=== PATIENT | female | born 1965 | race Caucasian/White ===

== ENCOUNTER 2017-09-30 07:15 | Emergency (ER) | payer OTHER ==
[~2017-09-30] VITALS: Ht 170.2 cm; Wt 70.1 kg
[2017-09-30 07:25] VITALS: TEMP 36.8; Ht 170.2 cm; Wt 70.1 kg
[2017-09-30] MEDS ORDERED: ONDANSETRON INJ 2 MG/ML 2 ML VIAL ONE (07:27)
[2017-09-30] MEDS ORDERED: SODIUM CHLORIDE 0.9% 1000ML 1,000 ML IV STA (07:32)
[2017-09-30] MEDS ORDERED: HYDROmorphone INJ 1 MG/ML SYR IV STA ×2 (07:32→08:03)
--- NOTE | 2017-09-30 07:43 | EMERGENCY ROOM VISIT NOTE ---
History Report prepared by Josefina: Guanakito Barnes Under the Supervision of: Dr. Gudelia Saenz M.D. First contact with patient: 07:25 Chief Complaint: KIDNEY STONE Stated Complaint: KIDNEY STONES History of Present Illness The patient is a 52 year old female who presents to the Emergency Room with complaints of severe sudden onset right sided flank pain that began this morning at 0545, 2 hours ago. The pain does radiate around into the right lower quadrant of her abdomen. The patient has a history of kidney stones and notes that this episode feels very similar to what she has experienced in the past. Her last episode was 4 years ago. Patient admits to vomiting. She denies any recent fevers, chest pain, shortness of breath. Source of History: patient Onset: 2 hours ago Position: back (lower, rt flank) Symptom Intensity: severe Timing: other (Sudden Onset) Associated Symptoms: + abdominal pain, No fevers Review of Systems See HPI for pertinent positives & negatives. A total of 10 systems reviewed and were otherwise negative. Past Medical & Surgical Hx of Kidney Stones Social History Smoking Status: Never Smoker Marital Status: single Occupation Status: employed Current/Historical Medications Scheduled Tamsulosin Hcl (Flomax), 0.4 MG PO DAILY Scheduled PRN Oxycodone/Acetaminophen 10MG/325MG (Percocet 10MG/325MG), 1 TAB PO BID PRN for Pain Allergies Coded Allergies: NSAIDs (Unverified Allergy, Unknown, burning stomach, 09/30/17) Prochlorperazine (Unverified Allergy, Unknown, tongue swells, 09/30/17) Physical Exam Vital Signs Date Time Temp Pulse Resp B/P (MAP) Pulse Ox O2 Delivery O2 Flow Rate FiO2 09/30/17 09:37 64 16 110/69 98 Room Air 09/30/17 08:10 61 23 142/95 99 Room Air 09/30/17 08:01 62 09/30/17 07:25 36.8 86 18 158/84 95 Room Air Physical Exam Vital signs reviewed. General: 52-year-old well-appearing female in some discomfort. HEENT: No scleral icterus, PERRLA, neck supple. Atraumatic. Cardiovascular: Regular rate and rhythm, no extra sounds. Pulmonary: Clear to auscultation bilaterally, normal work of breathing. Abdomen: Soft, nontender, nondistended, positive bowel sounds. There is mild right abd tenderness. Musculoskeletal: Atraumatic, no peripheral edema. There is tenderness to the right CVA. Neurologic: Patient awake alert and oriented x 3 Skin: Warm, dry, no rash Medical Decision & Procedures ER Provider Diagnostic Interpretation: Radiology results as stated below per my review and radiologist interpretation: ABD/PELVIS NO IV OR ORAL CONT CLINICAL HISTORY: 52 years-old Female presenting with Right flank pain, kidney stones. TECHNIQUE: Multidetector CT of the abdomen and pelvis was performed without the use of intravenous contrast. IV contrast: None. A dose lowering technique was used consistent with the principles of ALARA (as low as reasonably achievable). COMPARISON: None. CT DOSE (mGy.cm): The estimated cumulative dose is 516.19 mGycm. FINDINGS: Management Technician topogram: Unremarkable. Lung bases: Minimal basilar opacities, likely atelectasis. Normal heart size. No pericardial or pleural effusion. Liver: Normal morphology. Normal density. Biliary: No gross biliary ductal dilatation allowing for noncontrast technique. Normal gallbladder. Pancreas: Normal noncontrast appearance. Spleen: Normal noncontrast appearance. Adrenal glands: Normal noncontrast appearance. Kidneys and ureters: Obstructing 5 mm calculus in the proximal right ureter at the level of L4. Resultant mild right pelvocaliectasis. Dilatation of the proximal right ureter. There is also mild left pelvocaliectasis though the proximal left ureter is nondistended. Suggesting ureteropelvic junction obstruction. Bladder: Normal. Pelvic organs: Uterus surgically absent. No adnexal masses. Bowel: Mild stool burden. Apparent wall thickening of the transverse colon may be due to underdistention (series 3 image 271). Mild wall thickening of the ascending colon, which has a similar appearance. The cecum is distended with stool in the pelvis. The terminal ileum is distended with feces likely indicating delayed transit. The appendix is not visualized. No bowel obstruction. Peritoneal cavity: No free fluid or intraperitoneal gas. Lymph nodes: No gross lymphadenopathy allowing for noncontrast technique. Vasculature: Normal noncontrast appearance. Abdominal wall: Bilateral breast implants noted. Musculoskeletal: Degenerative changes of the spine. IMPRESSION: 1. Obstructing 5 mm calculus in the proximal right ureter at the level of L4 with resultant mild right hydroureteronephrosis. No additional renal or ureteral calculi. 2. 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 3. Mild wall thickening of the ascending colon and transverse colon. While this may be due to underdistention, a mild infectious colitis is also a possibility. Electronically signed by: Omar Flores M.D. 09/30/2017 8:11 AM Dictated Date/Time: 09/30/2017 8:03 AM Laboratory Results 09/30/17 07:30 Red Blood Count 4.76, Mean Corpuscular Volume 88.7, Mean Corpuscular Hemoglobin 29.8, Mean Corpuscular Hemoglobin Concent 33.6, Mean Platelet Volume 9.2, Neutrophils (%) (Auto) 53.0, Lymphocytes (%) (Auto) 36.0, Monocytes (%) (Auto) 7.0, Eosinophils (%) (Auto) 3.2, Basophils (%) (Auto) 0.5, Neutrophils # (Auto) 3.93, Lymphocytes # (Auto) 2.67, Monocytes # (Auto) 0.52, Eosinophils # (Auto) 0.24, Basophils # (Auto) 0.04 09/30/17 07:30 Test 09/30/17 07:30 09/30/17 08:58 White Blood Count 7.42 K/uL (4.8-10.8) Red Blood Count 4.76 M/uL (4.2-5.4) Hemoglobin 14.2 g/dL (12.0-16.0) Hematocrit 42.2 % (37-47) Mean Corpuscular Volume 88.7 fL (80-100) Mean Corpuscular Hemoglobin 29.8 pg (25-34) Mean Corpuscular Hemoglobin Concent 33.6 g/dl (32-36) Platelet Count 284 K/uL (130-400) Mean Platelet Volume 9.2 fL (7.4-10.4) Neutrophils (%) (Auto) 53.0 % Lymphocytes (%) (Auto) 36.0 % Monocytes (%) (Auto) 7.0 % Eosinophils (%) (Auto) 3.2 % Basophils (%) (Auto) 0.5 % Neutrophils # (Auto) 3.93 K/uL (1.4-6.5) Lymphocytes # (Auto) 2.67 K/uL (1.2-3.4) Monocytes # (Auto) 0.52 K/uL (0.11-0.59) Eosinophils # (Auto) 0.24 K/uL (0-0.5) Basophils # (Auto) 0.04 K/uL (0-0.2) RDW Standard Deviation 43.2 fL (36.4-46.3) RDW Coefficient of Variation 13.2 % (11.5-14.5) Immature Granulocyte % (Auto) 0.3 % Immature Granulocyte # (Auto) 0.02 K/uL (0.00-0.02) Anion Gap 7.0 mmol/L (3-11) Est Creatinine Clear Calc Drug Dose 68.0 ml/min Estimated GFR () 81.8 Estimated GFR (Non- 70.6 BUN/Creatinine Ratio 12.6 (10-20) Calcium Level 9.3 mg/dl (8.5-10.1) Total Bilirubin 0.5 mg/dl (0.2-1) Direct Bilirubin < 0.1 mg/dl (0-0.2) Aspartate Amino Transf (AST/SGOT) 18 U/L (15-37) Alanine Aminotransferase (ALT/SGPT) 26 U/L (12-78) Alkaline Phosphatase 74 U/L (45-117) Total Protein 7.3 gm/dl (6.4-8.2) Albumin 4.0 gm/dl (3.4-5.0) Urine Color YELLOW Urine Appearance CLEAR (CLEAR) Urine pH 7.0 (4.5-7.5) Urine Specific [place] 1.017 (1.000-1.030) Urine Protein NEG (NEG) Urine Glucose (UA) NEG (NEG) Urine Ketones NEG (NEG) Urine Occult Blood 2+ (NEG) Urine Nitrite NEG (NEG) Urine Bilirubin NEG (NEG) Urine Urobilinogen NEG (NEG) Urine Leukocyte Esterase NEG (NEG) Urine WBC (Auto) 1-5 /hpf (0-5) Urine RBC (Auto) >30 /hpf (0-4) Urine Hyaline Casts (Auto) 1-5 /lpf (0-5) Urine Epithelial Cells (Auto) >30 /lpf (0-5) Urine Bacteria (Auto) NEG (NEG) Laboratory results per my review. Medications Administered Medications (Trade) Dose Ordered Sig/Paulo Route Start Time Stop Time Status Last Admin Dose Admin Ondansetron HCl (Zofran Inj) 4 mg STK-MED ONCE .ROUTE 09/30/17 07:27 09/30/17 07:28 DC 09/30/17 07:29 4 MG Hydromorphone HCl (Dilaudid Inj) 1 mg NOW STAT IV 09/30/17 07:32 09/30/17 07:33 DC 09/30/17 07:39 1 MG Sodium Chloride 1,000 ml @ 999 mls/hr Q1H1M STAT IV 09/30/17 07:32 09/30/17 08:32 DC 09/30/17 07:39 999 MLS/HR Ketorolac Tromethamine (Toradol Inj) 30 mg NOW STAT IV 09/30/17 08:03 09/30/17 08:04 DC 09/30/17 08:08 30 MG Hydromorphone HCl (Dilaudid Inj) 1 mg NOW STAT IV 09/30/17 08:03 09/30/17 08:04 DC 09/30/17 08:08 1 MG Tamsulosin HCl (Flomax Cap) 0.4 mg NOW ONCE PO 09/30/17 08:15 09/30/17 08:16 DC 09/30/17 08:09 0.4 MG Oxycodone/ Acetaminophen (Percocet 10-325MG Tab) 1 tab NOW STAT PO 09/30/17 10:11 09/30/17 10:12 DC 09/30/17 10:15 1 TAB ED Course 0740: Past medical records reviewed. The patient was evaluated in room B4B. A complete history and physical examination was performed. 0727: Ordered Zofran 4 mg. 0732: Ordered Sodium Chloride 1000 mL @ 999 mL/hr IV, Dilaudid 1 mg IV. 0803: Ordered Dilaudid 1 mg IV, Toradol 30 mg IV. 0815: Ordered Flomax 0.4 mg PO. 0949: Upon reevaluation, the patient appeared to have improvement of her symptoms. I discussed findings with her. She verbalized agreement of the treatment plan. The patient was discharged home. Medical Decision Differential diagnosis: Etiologies such as renal colic, appendicitis, diverticulitis, mesenteric ischemia, aortic pathology, infections, inflammatory bowel disease, PUD, biliary pathology, UTI, as well as others were entertained. This patient was evaluated and appeared to be in significant discomfort. IV access was obtained and laboratory work was drawn. Patient was given IV Dilaudid and Zofran, hydrated with normal saline solution. CT scan of the abdomen and pelvis reveals a 5 mm mid right ureteral stone. UA and laboratory work are otherwise fairly unrevealing. There is no evidence of infection. Patient was given 0.4 mg of Flomax p.o., IV Toradol and a second dose of IV Dilaudid. Patient was able to call for a ride. She was given p.o. Percocet 10/ 325 just prior to discharge. Patient was given a prescription for Flomax. She does have Percocet to be taken at home. She was advised to follow-up with urology, Dr. White this week for further management if the stone does not pass. She will return to the ER for worsening of symptoms or any medical concerns. Patient was discharged in the care of her friend and is expressed an understanding. Medication Reconcilliation Current Medication List: was personally reviewed by me Blood Pressure Screening Patient's blood pressure: Elevated blood pressure Blood pressure disposition: Elevated BP felt to be situational Impression Primary Impression: Renal colic on right side Additional Impression: Kidney stone Scribe Attestation The scribe's documentation has been prepared under my direction and personally reviewed by me in its entirety. I confirm that the note above accurately reflects all work, treatment, procedures, and medical decision making performed by me. Departure Information Dispostion Home / Self-Care Prescriptions Tamsulosin Hcl (FLOMAX) 0.4 Mg Cap 0.4 MG PO DAILY for 7 Days, #7 CAP Prov: Gudelia Saenz M.D. 09/30/17 Referrals No Doctor, Assigned (PCP) Forms HOME CARE DOCUMENTATION FORM, IMPORTANT VISIT INFORMATION Patient Instructions My [facility] Additional Instructions Diagnosis: Right ureteral colic, kidney stone Strain all of your urine and take the stone for analysis. Increase fluids. Ibuprofen 600 mg every 6 hours as needed for pain . Percocet tablets as prescribed as needed for worse pain. No driving, working, or alcohol use with Percocet. Follow up with your urologist if it has not passed in 5-7 days or sooner for worsening symptoms. Follow up sooner for fever >101, vomiting, or significant increase in pain not controlled with medication. Return to the emergency department for worsening of symptoms or any medical concerns. Problem Qualifiers
[2017-09-30 07:45] LABS: BASO % 0.5 %; BASO ABS # 0.04 K/uL (0-0.2); EOS % 3.2 %; EOS ABS # 0.24 K/uL (0-0.5); HEMATOCRIT 42.2 % (37-47); HEMOGLOBIN 14.2 g/dL (12.0-16.0); IG# 0.02 K/uL (0.00-0.02); LYMPH ABS # 2.67 K/uL (1.2-3.4); MEAN CELL VOLUME 88.7 fL (80-100); MEAN CORPUSCULAR HEMOGLOBIN 29.8 pg (25-34); MEAN CORPUSCULAR HGB CONC 33.6 g/dl (32-36); MEAN PLATELET VOLUME 9.2 fL (7.4-10.4); MONO ABS # 0.52 K/uL (0.11-0.59); NEUT ABS # 3.93 K/uL (1.4-6.5); PLATELET COUNT 284 K/uL (130-400); RED CELL DISTRIBUTION WIDTH CV 13.2 % (11.5-14.5); RED CELL DISTRIBUTION WIDTH SD 43.2 fL (36.4-46.3); WHITE BLOOD COUNT 7.42 K/uL (4.8-10.8)
[2017-09-30 08:02] LABS: ALT/SGPT 26 U/L (12-78); AST/SGOT 18 U/L (15-37); BLOOD UREA NITROGEN 12 mg/dl (7-18); CALCIUM 9.3 mg/dl (8.5-10.1); CARBON DIOXIDE 26 mmol/L (21-32); CREATININE 0.92 mg/dl (0.60-1.20); GLUCOSE 120 mg/dl (70-99); POTASSIUM 3.6 mmol/L (3.5-5.1); SODIUM 140 mmol/L (136-145)
[2017-09-30] MEDS ORDERED: KETOROLAC TROMETHAMINE 30 MG/ML VIAL IV STA (08:03)
[2017-09-30 08:05] LABS: ALKALINE PHOSPHATASE 74 U/L (45-117); TOTAL PROTEIN 7.3 gm/dl (6.4-8.2)
--- NOTE | 2017-09-30 08:13 | DIAGNOSTIC IMAGING REPORT ---
ABD/PELVIS NO IV OR ORAL CONT CLINICAL HISTORY: 52 years-old Female presenting with Right flank pain, kidney stones. TECHNIQUE: Multidetector CT of the abdomen and pelvis was performed without the use of intravenous contrast. IV contrast: None. A dose lowering technique was used consistent with the principles of ALARA (as low as reasonably achievable). COMPARISON: None. CT DOSE (mGy.cm): The estimated cumulative dose is 516.19 mGycm. FINDINGS: Plug Stitcher topogram: Unremarkable. Lung bases: Minimal basilar opacities, likely atelectasis. Normal heart size. No pericardial or pleural effusion. Liver: Normal morphology. Normal density. Biliary: No gross biliary ductal dilatation allowing for noncontrast technique. Normal gallbladder. Pancreas: Normal noncontrast appearance. Spleen: Normal noncontrast appearance. Adrenal glands: Normal noncontrast appearance. Kidneys and ureters: Obstructing 5 mm calculus in the proximal right ureter at the level of L4. Resultant mild right pelvocaliectasis. Dilatation of the proximal right ureter. There is also mild left pelvocaliectasis though the proximal left ureter is nondistended. Suggesting ureteropelvic junction obstruction. Bladder: Normal. Pelvic organs: Uterus surgically absent. No adnexal masses. Bowel: Mild stool burden. Apparent wall thickening of the transverse colon may be due to underdistention (series 3 image 271). Mild wall thickening of the ascending colon, which has a similar appearance. The cecum is distended with stool in the pelvis. The terminal ileum is distended with feces likely indicating delayed transit. The appendix is not visualized. No bowel obstruction. Peritoneal cavity: No free fluid or intraperitoneal gas. Lymph nodes: No gross lymphadenopathy allowing for noncontrast technique. Vasculature: Normal noncontrast appearance. Abdominal wall: Bilateral breast implants noted. Musculoskeletal: Degenerative changes of the spine. IMPRESSION: 1. Obstructing 5 mm calculus in the proximal right ureter at the level of L4 with resultant mild right hydroureteronephrosis. No additional renal or ureteral calculi. 2. 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 3. Mild wall thickening of the ascending colon and transverse colon. While this may be due to underdistention, a mild infectious colitis is also a possibility. Electronically signed by: Omar Flores M.D. 09/30/2017 8:11 AM Dictated Date/Time: 09/30/2017 8:03 AM
[2017-09-30] MEDS ORDERED: TAMSULOSIN HCL 0.4 MG CAP PO ONE (08:15)
[2017-09-30] MEDS ORDERED: OXYC-106 PO (08:16)
[2017-09-30 09:37] VITALS: BP 110/69; PULSE 64; O2SAT 98
[2017-09-30] MEDS ORDERED: TAMS0.4C38 PO (10:10)
[2017-09-30] MEDS ORDERED: OXYCODONE/ACETAMINOPHEN 10/325MG TAB PO STA (10:11)
== END 2017-09-30 10:31 | disposition home or self-care (01) ==
LOC: C.EDB 07:17
DX: N23 Unspecified renal colic (principal); N20.0 Calculus of kidney; Z87.442 Personal history of urinary calculi; Z88.8 Allergy status to other drugs, medicaments and biological substances

== ENCOUNTER 2017-10-02 05:21 | Inpatient (IN) | payer OTHER ==
[~2017-10-02] VITALS: Ht 170.2 cm; Wt 68.2 kg
[~2017-10-02 05:21] MED LIST: OXYC10TA80 PO; TAMS0.4C38 PO
[2017-10-02] MEDS ORDERED: ONDANSETRON INJ 2 MG/ML 2 ML VIAL IV STA ×2 (05:36→07:28)
[2017-10-02] MEDS ORDERED: HYDROmorphone INJ 1 MG/ML SYR IV STA (05:36)
[2017-10-02] MEDS ORDERED: KETOROLAC TROMETHAMINE 30 MG/ML VIAL IV STA ×2 (05:36→16:57)
[2017-10-02] MEDS ORDERED: SODIUM CHLORIDE 0.9% 1000ML 1,000 ML IV ONE (05:45)
[2017-10-02] MEDS ORDERED: MULT-506 PO (05:58)
[2017-10-02] MEDS ORDERED: TAMS0.4C38 PO (05:58)
--- NOTE | 2017-10-02 05:58 | EMERGENCY ROOM VISIT NOTE ---
ED Visit Note First contact with patient: 05:27 I saw this patient in conjunction with Manuel Ibarra PA-C. I agree with his decision making and treatment plan.
[2017-10-02 06:00] LABS: BASO % 0.3 %; BASO ABS # 0.03 K/uL (0-0.2); EOS % 3.1 %; HEMATOCRIT 37.7 % (37-47); HEMOGLOBIN 12.4 g/dL (12.0-16.0); IG# 0.04 K/uL (0.00-0.02); LYMPH % 16.7 %; LYMPH ABS # 1.63 K/uL (1.2-3.4); MEAN CELL VOLUME 88.3 fL (80-100); MEAN CORPUSCULAR HGB CONC 32.9 g/dl (32-36); MEAN PLATELET VOLUME 9.4 fL (7.4-10.4); MONO % 8.1 %; MONO ABS # 0.79 K/uL (0.11-0.59); NEUT % 71.4 %; NEUT ABS # 6.99 K/uL (1.4-6.5); PLATELET COUNT 224 K/uL (130-400); RED CELL DISTRIBUTION WIDTH CV 13.1 % (11.5-14.5); RED CELL DISTRIBUTION WIDTH SD 42.3 fL (36.4-46.3); WHITE BLOOD COUNT 9.78 K/uL (4.8-10.8)
[2017-10-02 06:39] LABS: ALBUMIN 3.6 gm/dl (3.4-5.0); CALCIUM 8.6 mg/dl (8.5-10.1); CREATININE 1.27 mg/dl (0.60-1.20); POTASSIUM 3.3 mmol/L (3.5-5.1)
[2017-10-02] MEDS ORDERED: HYDROmorphone INJ 0.5 MG/0.5 ML SYR IV STA (06:39)
--- NOTE | 2017-10-02 06:40 | DIAGNOSTIC IMAGING REPORT ---
KUB CLINICAL HISTORY: right ureteral stone COMPARISON STUDY: CT scan dated 09/30/2017 FINDINGS: There is gaseous prominence of both large and small bowel loops likely representing a mild ileus. There is a lumbar levoscoliosis. There are no transition zones indicate bowel obstruction. There are multiple nonspecific pelvic basin calcifications. The proximal ureteral calculus described in the recent CT scan is not visualized with certainty. IMPRESSION: Nonspecific pelvic basin calcifications. A distal ureteral calculus cannot be excluded. Electronically signed by: Wayne Thrasher M.D. 10/02/2017 6:39 AM Dictated Date/Time: 10/02/2017 6:37 AM
[2017-10-02 06:42] LABS: TOTAL PROTEIN 6.8 gm/dl (6.4-8.2)
--- NOTE | 2017-10-02 07:00 | DIAGNOSTIC IMAGING REPORT ---
(RENAL)RETROPERITON COMP HISTORY: Hydronephrosis right side ureteral calculi COMPARISON: CT 09/30/2017 FINDINGS: Right kidney: Maximum dimension 11.4 cm. Moderate right renal hydronephrosis. 6 mm proximal right ureteral calculus. Normal corticomedullary differentiation and cortical thickness. Left kidney: Maximum dimension 11.4 cm. Subtle fullness left renal collecting system with no radha hydronephrosis. Normal corticomedullary differentiation and cortical thickness. Bladder: Possible calculus right ureterovesical junction. IMPRESSION: 1. Obstructing 6 mm proximal right ureteral calculus with moderate right hydronephrosis. 2. Potential additional calcification right ureterovesical junction. There is Slight nonspecific fullness left renal collecting system. The above report was generated using voice recognition software. It may contain grammatical, syntax or spelling errors. Electronically signed by: Mendoza Lawrence M.D. 10/02/2017 6:59 AM Dictated Date/Time: 10/02/2017 6:56 AM
[2017-10-02] MEDS ORDERED: TAMSULOSIN HCL 0.4 MG CAP PO SCH (08:00)
[2017-10-02] MEDS ORDERED: ONDANSETRON INJ 2 MG/ML 2 ML VIAL IV PRN (08:00)
--- NOTE | 2017-10-02 08:08 | History and Physical ---
History & Physical Date & Time of Service: Oct 02, 2017 at 08:03 Chief Complaint: Kidney Stone Primary Care Physician: Gayatri Pham M.D. History of Present Illness Source: patient This is a 52 year old F who reports of kidney stones of right kidney in the past with last bout of kidney stones around 5 yars ago which resolved without surgical intervention who was last seen in the ED on 09/30/17 for right flank pain symptoms with vomiting and found on CT abdomen to have right hydronephrosis and secondary to kidney stone (Obstructing 5 mm calculus in the proximal right ureter at the level of L4. Resultant mild right pelvocaliectasis. Dilatation of the proximal right ureter). Patient was treated conservatively in the ED with pain control and patient discharged with tamsulosin and asked to schedule with urology as outpatient. Patient reports that due to primarily the right flank pain she has been laying in bed at home for the last 2 days and did not make any clinic appointments. Patient returns to the ED today with the flank pain. Patient denies fevers at home. Past Medical/Surgical History Medical Problems: (1) Hydronephrosis of right kidney (2) Kidney stone (3) Renal colic on right side (4) Right kidney stone Family History FH: cancer MOTHER Social History Smoking Status: Never Smoker Marital Status: single Occupational Status: employed Allergies Coded Allergies: NSAIDs (Verified Allergy, Unknown, burning stomach, 10/02/17) Prochlorperazine (Verified Allergy, Unknown, tongue swells, 10/02/17) Home Medications Scheduled Multivitamin (Multivitamin), 1 TAB PO DAILY Tamsulosin Hcl (Flomax), 0.4 MG PO DAILY Scheduled PRN Oxycodone/Acetaminophen 10MG/325MG (Percocet 10MG/325MG), 1 TAB PO BID PRN for Pain Review of Systems Constitutional: No fever Eyes: No worsening of vision, No eye pain, No redness, No discharge, No diplopia, No problem reported ENT: No hearing loss, No unusual epistaxis, No nasal symptoms, No sore throat, No tinnitus, No dental problems, No trouble swallowing, No problem reported Respiratory: No cough, No sputum, No wheezing, No shortness of breath, No dyspnea on exertion, No dyspnea at rest, No hemoptysis, No problem reported Cardiovascular: No chest pain, No orthopnea, No PND, No edema, No claudication , No palpitations, No problem reported Abdomen: + nausea, + vomiting, + problem reported (right flank pain and right flank back pain), No diarrhea, No constipation, No GI bleeding Musculoskeletal: No joint pain, No muscle pain, No swelling, No calf pain, No problem reported Genitourinary - Female: No dysuria Neurologic: No memory loss, No paralysis, No weakness, No numbness/tingling, No vertigo, No balance problems, No problem reported Psychiatric: No substance abuse Hematologic / Lymphatic: No abnormal bleeding/bruising Integumentary: No rash, No itch Physical Exam Vital Signs Date Time Temp Pulse Resp B/P (MAP) Pulse Ox O2 Delivery O2 Flow Rate FiO2 10/02/17 06:37 67 18 132/80 98 Room Air 10/02/17 05:23 36.8 91 22 152/94 95 Room Air General Appearance: no apparent distress Head: normocephalic, atraumatic Eyes: normal inspection, EOMI, sclerae normal ENT: normal ENT inspection, hearing grossly normal, pharynx normal Neck: supple, no JVD, trachea midline Respiratory/Chest: chest non-tender, lungs clear, normal breath sounds, no respiratory distress, no accessory muscle use Cardiovascular: regular rate, rhythm, no edema, no JVD, no murmur Abdomen/GI: normal bowel sounds, non tender, soft, no organomegaly, no pulsatile mass, + pertinent finding (right flank tenderness) Back: normal inspection, no muscle spasm, normal range of motion, + right CVA tenderness Extremities/Musculoskelatal: normal inspection, no calf tenderness, no pedal edema, non-tender Neurologic/Psych: no motor/sensory deficits, alert, normal mood/affect, oriented x 3 Skin: normal color, warm/dry, no rash Diagnostics Laboratory Results Results Past 24 Hours Test 10/02/17 05:45 10/02/17 06:37 Range/Units White Blood Count 9.78 4.8-10.8 K/uL Red Blood Count 4.27 4.2-5.4 M/uL Hemoglobin 12.4 12.0-16.0 g/dL Hematocrit 37.7 37-47 % Mean Corpuscular Volume 88.3 80-100 fL Mean Corpuscular Hemoglobin 29.0 25-34 pg Mean Corpuscular Hemoglobin Concent 32.9 32-36 g/dl Platelet Count 224 130-400 K/uL Mean Platelet Volume 9.4 7.4-10.4 fL Neutrophils (%) (Auto) 71.4 % Lymphocytes (%) (Auto) 16.7 % Monocytes (%) (Auto) 8.1 % Eosinophils (%) (Auto) 3.1 % Basophils (%) (Auto) 0.3 % Neutrophils # (Auto) 6.99 1.4-6.5 K/uL Lymphocytes # (Auto) 1.63 1.2-3.4 K/uL Monocytes # (Auto) 0.79 0.11-0.59 K/uL Eosinophils # (Auto) 0.30 0-0.5 K/uL Basophils # (Auto) 0.03 0-0.2 K/uL RDW Standard Deviation 42.3 36.4-46.3 fL RDW Coefficient of Variation 13.1 11.5-14.5 % Immature Granulocyte % (Auto) 0.4 % Immature Granulocyte # (Auto) 0.04 0.00-0.02 K/uL Sodium Level 137 136-145 mmol/L Potassium Level 3.3 3.5-5.1 mmol/L Chloride Level 107 98-107 mmol/L Carbon Dioxide Level 25 21-32 mmol/L Anion Gap 5.0 3-11 mmol/L Blood Urea Nitrogen 13 7-18 mg/dl Creatinine 1.27 0.60-1.20 mg/dl Est Creatinine Clear Calc Drug Dose 49.3 ml/min Estimated GFR () 55.4 Estimated GFR (Non- 47.8 BUN/Creatinine Ratio 10.3 10-20 Random Glucose 105 70-99 mg/dl Calcium Level 8.6 8.5-10.1 mg/dl Total Bilirubin 0.4 0.2-1 mg/dl Aspartate Amino Transf (AST/SGOT) 19 15-37 U/L Alanine Aminotransferase (ALT/SGPT) 24 12-78 U/L Alkaline Phosphatase 69 45-117 U/L Total Protein 6.8 6.4-8.2 gm/dl Albumin 3.6 3.4-5.0 gm/dl Globulin 3.2 2.5-4.0 gm/dl Albumin/Globulin Ratio 1.1 0.9-2 Lipase 248 73-393 U/L Urine Color YELLOW Urine Appearance CLEAR CLEAR Urine pH 5.0 4.5-7.5 Urine Specific [place] 1.011 1.000-1.030 Urine Protein NEG NEG Urine Glucose (UA) NEG NEG Urine Ketones NEG NEG Urine Occult Blood 2+ NEG Urine Nitrite NEG NEG Urine Bilirubin NEG NEG Urine Urobilinogen NEG NEG Urine Leukocyte Esterase TRACE NEG Urine WBC (Auto) 1-5 0-5 /hpf Urine RBC (Auto) 0-4 0-4 /hpf Urine Hyaline Casts (Auto) 0 0-5 /lpf Urine Epithelial Cells (Auto) 10-20 0-5 /lpf Urine Bacteria (Auto) NEG NEG Impression Assessment and Plan This is a 52 year old F who reports of kidney stones of right kidney in the past with last bout of kidney stones around 5 yars ago which resolved without surgical intervention who was last seen in the ED on 09/30/17 for right flank pain symptoms with vomiting and found on CT abdomen to have right hydronephrosis and secondary to kidney stone and returns with flank pain and persistent obstructing right kidney stone and right hydronephrosis CT Abdomen 09/30/17 "Obstructing 5 mm calculus in the proximal right ureter at the level of L4. Resultant mild right pelvocaliectasis. Dilatation of the proximal right ureter. There is also mild left pelvocaliectasis though the proximal left ureter is nondistended. Suggesting ureteropelvic junction obstruction." KUB 10/02/17 "There is gaseous prominence of both large and small bowel loops likely representing a mild ileus. There is a lumbar levoscoliosis. There are no transition zones indicate bowel obstruction. There are multiple nonspecific pelvic basin calcifications. The proximal ureteral calculus described in the recent CT scan is not visualized with certainty. IMPRESSION: Nonspecific pelvic basin calcifications. A distal ureteral calculus cannot be excluded. " Renal Ultrasound 10/02/17 "1. Obstructing 6 mm proximal right ureteral calculus with moderate right hydronephrosis. 2. Potential additional calcification right ureterovesical junction. There is Slight nonspecific fullness left renal collecting system" Plan Obstructing 6 mm proximal right ureteral calculus with moderate right hydronephrosis -IV fluids, Tamsulosin -antiemetics except comapzine (Reports tongue swelling allergy to compazine ) -Pain medications with bowel regimen -Urology consultation requested. Of note the patient reported to hospitalist medical doctor that she wants to avoid Shock Wave Lithotripsy for the kidney stone - she never had that procedure done before but she is afraid that it would cause her more pain - hospitalist medical doctor advises her to consider all options as presented by the urologist before making decisions Reports allergy to compazine (tongue swelling) DVT ppx: SCDs FULL CODE Resuscitation Status VTE Prophylaxis Will order VTE Prophylaxis: Yes
[2017-10-02] MEDS ORDERED: NURSING VERBAL MED ORDER ONE (09:15)
[2017-10-02] MEDS ORDERED: DiphenhydrAMINE HCL 50 MG/ML VIAL ONE (09:16)
[2017-10-02 10:20] VITALS: BP 151/88; PULSE 68; TEMP 37.3; O2SAT 96; Ht 170.2 cm; Wt 68.2 kg
[2017-10-02] MEDS: SODIUM CHLORIDE 0.9% 1000ML 1,000 ML IV SCH ×2 (10:46→19:00)
[2017-10-02] MEDS: SENNA 8.6 MG TAB PO SCH (11:25)
[2017-10-02] MEDS: HYDROmorphone INJ 2 MG/ML SYR/VIAL IV PRN ×2 (13:44→21:31)
[2017-10-02 15:04] VITALS: BP 137/88; PULSE 61; TEMP 36.5; O2SAT 97
--- NOTE | 2017-10-02 17:01 | Urology Consultation ---
History General Date of Service: Oct 02, 2017. Chief Complaint: right ureteral stone Primary Care Physician: Gayatri Pham M.D. Pt seen a urologist before?: Yes If yes, why?: ureteral stone History of Present Illness I am asked by Dr Saud Harper to evaluate and treat santy for right ureteral stone. She has been admitted from ER this am. She was seen in ER 2 days ago with right renal colic. A ct scan showed right upper ureter stone at L4 5mm in size with mild hydro. She was sent home on pain meds and flomax. She has right flank pain. Pain got worse last night and she returned to ER. She has had a renal u/s which shows hydro and likely a right uvj stone and a kub which does not show anything. She has right flank pain mild and right low abdomen pain severe and intense bladder pressure which is new today. She has nausea and emesis with pain. Her pain is severe now. Imaging Imaging: CT, KUB, Ultrasound Laboratory Results Past 24 Hours Test 10/02/17 05:45 10/02/17 06:37 Range/Units White Blood Count 9.78 4.8-10.8 K/uL Red Blood Count 4.27 4.2-5.4 M/uL Hemoglobin 12.4 12.0-16.0 g/dL Hematocrit 37.7 37-47 % Mean Corpuscular Volume 88.3 80-100 fL Mean Corpuscular Hemoglobin 29.0 25-34 pg Mean Corpuscular Hemoglobin Concent 32.9 32-36 g/dl Platelet Count 224 130-400 K/uL Mean Platelet Volume 9.4 7.4-10.4 fL Neutrophils (%) (Auto) 71.4 % Lymphocytes (%) (Auto) 16.7 % Monocytes (%) (Auto) 8.1 % Eosinophils (%) (Auto) 3.1 % Basophils (%) (Auto) 0.3 % Neutrophils # (Auto) 6.99 1.4-6.5 K/uL Lymphocytes # (Auto) 1.63 1.2-3.4 K/uL Monocytes # (Auto) 0.79 0.11-0.59 K/uL Eosinophils # (Auto) 0.30 0-0.5 K/uL Basophils # (Auto) 0.03 0-0.2 K/uL RDW Standard Deviation 42.3 36.4-46.3 fL RDW Coefficient of Variation 13.1 11.5-14.5 % Immature Granulocyte % (Auto) 0.4 % Immature Granulocyte # (Auto) 0.04 0.00-0.02 K/uL Sodium Level 137 136-145 mmol/L Potassium Level 3.3 3.5-5.1 mmol/L Chloride Level 107 98-107 mmol/L Carbon Dioxide Level 25 21-32 mmol/L Anion Gap 5.0 3-11 mmol/L Blood Urea Nitrogen 13 7-18 mg/dl Creatinine 1.27 0.60-1.20 mg/dl Est Creatinine Clear Calc Drug Dose 49.3 ml/min Estimated GFR () 55.4 Estimated GFR (Non- 47.8 BUN/Creatinine Ratio 10.3 10-20 Random Glucose 105 70-99 mg/dl Calcium Level 8.6 8.5-10.1 mg/dl Total Bilirubin 0.4 0.2-1 mg/dl Aspartate Amino Transf (AST/SGOT) 19 15-37 U/L Alanine Aminotransferase (ALT/SGPT) 24 12-78 U/L Alkaline Phosphatase 69 45-117 U/L Total Protein 6.8 6.4-8.2 gm/dl Albumin 3.6 3.4-5.0 gm/dl Globulin 3.2 2.5-4.0 gm/dl Albumin/Globulin Ratio 1.1 0.9-2 Lipase 248 73-393 U/L Hepatitis C Antibody Screen NEG NEG Urine Color YELLOW Urine Appearance CLEAR CLEAR Urine pH 5.0 4.5-7.5 Urine Specific [place] 1.011 1.000-1.030 Urine Protein NEG NEG Urine Glucose (UA) NEG NEG Urine Ketones NEG NEG Urine Occult Blood 2+ NEG Urine Nitrite NEG NEG Urine Bilirubin NEG NEG Urine Urobilinogen NEG NEG Urine Leukocyte Esterase TRACE NEG Urine WBC (Auto) 1-5 0-5 /hpf Urine RBC (Auto) 0-4 0-4 /hpf Urine Hyaline Casts (Auto) 0 0-5 /lpf Urine Epithelial Cells (Auto) 10-20 0-5 /lpf Urine Bacteria (Auto) NEG NEG Labs were reviewed and are within normal limits unless listed below. Labs are available in the chart and at [facility] Problem List Medical Problems: (1) Kidney stone Status: Acute (2) Renal colic on right side Status: Acute Past History no pertinent history Pt had a problem w anesthesia?: No Past Surgical History: hysterectomy (at time of treatment for tubal , breast augmentation, numerous laparoscopies. ) Family History FH: cancer MOTHER father has kidney stones mother of cervical cancer Social History Hx Tobacco Use In Past Year?: No Smoking: non-smoker Alcohol: never Marital status: single Housing status: lives alone Occupation status: employed Allergies Coded Allergies: Flomax (Verified Allergy, Mild, RASH, 10/02/17) itchy red rash on thighs NSAIDs (Verified Allergy, Unknown, burning stomach, 10/02/17) Prochlorperazine (Verified Allergy, Unknown, tongue swells, 10/02/17) Medications Home Medications: Home Meds and Scripts Medications Dose Route/Sig Max Daily Dose Days Date Category Dose Instructions Multivitamin (Multivitamins) Tab 1 Tab PO DAILY 10/02/17 Reported Flomax (Tamsulosin Hcl) 0.4 Mg Cap 0.4 Mg PO DAILY 10/02/17 Reported Percocet 10MG/325MG (Oxycodone/Acetaminophen) Tab 1 Tab PO BID PRN 09/30/17 Reported pt states usually only will take 1/day Inpatient Medications: Current Inpatient Medications Medications (Trade) Dose Ordered Sig/Paulo Route Start Time Stop Time Status Last Admin Dose Admin Ondansetron HCl (Zofran Inj) 4 mg Q6H PRN IV 10/02/17 08:00 11/01/17 07:59 Sodium Chloride 1,000 ml @ 125 mls/hr Q8H IV 10/02/17 10:30 11/01/17 10:29 10/02/17 10:46 125 MLS/HR Tamsulosin HCl (Flomax Cap) 0.4 mg QAM PO 10/03/17 09:00 11/02/17 08:59 Senna (Senokot Tab) 17.2 mg QAM PO 10/02/17 09:00 11/01/17 08:59 10/02/17 11:25 17.2 MG Hydromorphone HCl (Dilaudid Inj) 1 mg Q6H PRN IV 10/02/17 08:00 10/16/17 07:59 10/02/17 13:44 1 MG Review of Systems Review of Systems Constitutional: + frequent headaches, No fever, No chills Neurological: No passing out, No seizures Endocrine: No excessive thirst, No too cold, No tired/sluggish Gastrointestinal: + abdominal pain, + indigestion, + nausea, + vomiting, + constipation, No diarrhea Cardiovascular: No chest pain, No palpitations Respiratory: No shortness of breath Skin: + rash Blood / Lymphatic: No bleed easily Ears / Nose / Throat: No hearing loss Female : + frequent urination, + painful urination, + kidney stones Physical Exam Vital Signs: Vital Signs Past 12 Hours Date Time Temp Pulse Resp B/P (MAP) Pulse Ox O2 Delivery O2 Flow Rate FiO2 10/02/17 15:04 36.5 61 16 137/88 (104) 97 Room Air 10/02/17 10:20 37.3 68 16 151/88 96 Room Air 10/02/17 09:17 67 18 145/86 98 Room Air 10/02/17 08:17 63 18 128/73 98 Room Air 10/02/17 06:37 67 18 132/80 98 Room Air 10/02/17 05:23 36.8 91 22 152/94 95 Room Air Physical Exam: General Appearance: WD/WN, + moderate distress, + thin Eyes: bilateral eyes normal inspection ENT: hearing grossly normal Neck: no adenopathy, trachea midline Respiratory/Chest: no respiratory distress, no accessory muscle use Gastrointestinal: Abdomen: RLQ tenderness, rigidity, guarding Bladder: normal bladder Hernia: absent hernia Liver: normal liver Spleen: normal spleen Extremities: normal inspection, no pedal edema, no calf tenderness Neurologic/Psychiatric: alert, normal mood/affect, oriented x 3 Skin: normal color, warm/dry, no rash Lymphatic: no adenopathy Assessment & Plan Assessment & Plan right ureteral stone with obstruction hydroureteronephrosis I think the stone has moved from upper ureter to the right uvj I think the uvj stone is causing the bladder pressure I think she should wait one more day to pass the stone. We will switch from flomax to doxazosin for alpha blockade to help passage strain urine general diet tonight clears for breakfast NPO expect meds after breakfast may proceed to OR tomorrow afternoon for right uscope laser litho basket stone extraction possible stent she agrees to plan restart miralax I reviewed the ct scan films and report, renal ultrasound and report, and KUB film and report.
[2017-10-02] MEDS: POLYETHYLENE (MIRALAX) 17 GM PACK PO SCH (19:01)
[2017-10-02] MEDS: DOXAZosin MESYLATE TAB 2 MG TAB PO SCH (21:31)
[2017-10-02] MEDS ORDERED: HYDROmorphone INJ 2 MG/ML SYR/VIAL IV ONE (22:05)
[2017-10-02 23:13] VITALS: BP 130/76; PULSE 67; TEMP 37.3; O2SAT 95
[2017-10-02] MEDS ORDERED: ZOLPIDEM TARTRATE 5 MG TAB PO PRN (23:45)
[2017-10-03] VITALS (8 sets, daily range): BP systolic 115–153; BP diastolic 71–83; PULSE 63–73; TEMP 36.5–37; O2SAT 94–97
[2017-10-03] MEDS: HYDROmorphone INJ 2 MG/ML SYR/VIAL IV PRN ×3 (03:09→11:47)
[2017-10-03] MEDS: SODIUM CHLORIDE 0.9% 1000ML 1,000 ML IV SCH ×4 (03:09→22:59)
--- NOTE | 2017-10-03 03:27 | EMERGENCY ROOM VISIT NOTE ---
History First contact with patient: 05:27 Chief Complaint: KIDNEY STONE Stated Complaint: HYDRONEPHROSIS OF R KIDNEY, KIDNEY STONE History of Present Illness The patient is a 52 year old female who presents to the Emergency Room with complaints of continued severe pain in her right flank. The patient was seen here in the emergency department a few days ago where she was diagnosed with a ureteral calculi. The patient felt well while here in the department, and was comfortable with going home. She has been taking her at home pain medication, however her discomfort continues to be at a very high level, and she is not able to sleep. She rates her current pain a 9/10 at best. She does not identify aggravating or alleviating factors. She has not had fever or chills. She continues to make a small amount of urine. The patient has yet to contact urology for her stone. Review of Systems More than 10 systems were reviewed and otherwise negative with the exception of history of present illness. Past Medical/Surgical History Medical Problems: (1) Hydronephrosis of right kidney (2) Right kidney stone Family History FH: cancer MOTHER Social History Smoking Status: Unknown if Ever Smoked Marital Status: single Occupation Status: employed Current/Historical Medications Scheduled Multivitamin (Multivitamin), 1 TAB PO DAILY Tamsulosin Hcl (Flomax), 0.4 MG PO DAILY Scheduled PRN Oxycodone/Acetaminophen 10MG/325MG (Percocet 10MG/325MG), 1 TAB PO BID PRN for Pain Physical Exam Vital Signs Date Time Temp Pulse Resp B/P (MAP) Pulse Ox O2 Delivery O2 Flow Rate FiO2 10/02/17 09:17 67 18 145/86 98 Room Air 10/02/17 08:17 63 18 128/73 98 Room Air 10/02/17 06:37 67 18 132/80 98 Room Air 10/02/17 05:23 36.8 91 22 152/94 95 Room Air Physical Exam VITALS: Vitals are noted on the nurse's note and reviewed by myself. Vital signs stable. GENERAL: Well-developed, well-nourished, white female who appears in moderate to severe discomfort secondary to her stated complaint. She is very uncomfortable in her ER bed. NECK: Supple without nuchal rigidity. No lymphadenopathy. No thyromegaly. Cervical spine is nontender. HEART: Regular rate and rhythm without murmurs gallops or rubs. LUNGS: Clear to auscultation bilaterally without wheezes, rales or rhonchi. No retractions or accessory muscle use. ABDOMEN: Positive normal bowel sounds x 4. Soft, nontender, without masses or organomegaly. No guarding or rebound tenderness. No CVA tenderness. NEURO: Patient was alert and oriented to person place and time. CN II through XII grossly intact. Medical Decision & Procedures ER Provider Diagnostic Interpretation: KUB CLINICAL HISTORY: right ureteral stone COMPARISON STUDY: CT scan dated 09/30/2017 FINDINGS: There is gaseous prominence of both large and small bowel loops likely representing a mild ileus. There is a lumbar levoscoliosis. There are no transition zones indicate bowel obstruction. There are multiple nonspecific pelvic basin calcifications. The proximal ureteral calculus described in the recent CT scan is not visualized with certainty. IMPRESSION: Nonspecific pelvic basin calcifications. A distal ureteral calculus cannot be excluded. (RENAL)RETROPERITON COMP HISTORY: Hydronephrosis right side ureteral calculi COMPARISON: CT 09/30/2017 FINDINGS: Right kidney: Maximum dimension 11.4 cm. Moderate right renal hydronephrosis. 6 mm proximal right ureteral calculus. Normal corticomedullary differentiation and cortical thickness. Left kidney: Maximum dimension 11.4 cm. Subtle fullness left renal collecting system with no radha hydronephrosis. Normal corticomedullary differentiation and cortical thickness. Bladder: Possible calculus right ureterovesical junction. IMPRESSION: 1. Obstructing 6 mm proximal right ureteral calculus with moderate right hydronephrosis. 2. Potential additional calcification right ureterovesical junction. There is Slight nonspecific fullness left renal collecting system. Laboratory Results 10/02/17 05:45 Red Blood Count 4.27, Mean Corpuscular Volume 88.3, Mean Corpuscular Hemoglobin 29.0, Mean Corpuscular Hemoglobin Concent 32.9, Mean Platelet Volume 9.4, Neutrophils (%) (Auto) 71.4, Lymphocytes (%) (Auto) 16.7, Monocytes (%) (Auto) 8.1, Eosinophils (%) (Auto) 3.1, Basophils (%) (Auto) 0.3, Neutrophils # (Auto) 6.99, Lymphocytes # (Auto) 1.63, Monocytes # (Auto) 0.79, Eosinophils # (Auto) 0.30, Basophils # (Auto) 0.03 10/02/17 05:45 Test 10/02/17 05:45 10/02/17 06:37 White Blood Count 9.78 K/uL (4.8-10.8) Red Blood Count 4.27 M/uL (4.2-5.4) Hemoglobin 12.4 g/dL (12.0-16.0) Hematocrit 37.7 % (37-47) Mean Corpuscular Volume 88.3 fL (80-100) Mean Corpuscular Hemoglobin 29.0 pg (25-34) Mean Corpuscular Hemoglobin Concent 32.9 g/dl (32-36) Platelet Count 224 K/uL (130-400) Mean Platelet Volume 9.4 fL (7.4-10.4) Neutrophils (%) (Auto) 71.4 % Lymphocytes (%) (Auto) 16.7 % Monocytes (%) (Auto) 8.1 % Eosinophils (%) (Auto) 3.1 % Basophils (%) (Auto) 0.3 % Neutrophils # (Auto) 6.99 K/uL (1.4-6.5) Lymphocytes # (Auto) 1.63 K/uL (1.2-3.4) Monocytes # (Auto) 0.79 K/uL (0.11-0.59) Eosinophils # (Auto) 0.30 K/uL (0-0.5) Basophils # (Auto) 0.03 K/uL (0-0.2) RDW Standard Deviation 42.3 fL (36.4-46.3) RDW Coefficient of Variation 13.1 % (11.5-14.5) Immature Granulocyte % (Auto) 0.4 % Immature Granulocyte # (Auto) 0.04 K/uL (0.00-0.02) Anion Gap 5.0 mmol/L (3-11) Est Creatinine Clear Calc Drug Dose 49.3 ml/min Estimated GFR () 55.4 Estimated GFR (Non- 47.8 BUN/Creatinine Ratio 10.3 (10-20) Calcium Level 8.6 mg/dl (8.5-10.1) Total Bilirubin 0.4 mg/dl (0.2-1) Aspartate Amino Transf (AST/SGOT) 19 U/L (15-37) Alanine Aminotransferase (ALT/SGPT) 24 U/L (12-78) Alkaline Phosphatase 69 U/L (45-117) Total Protein 6.8 gm/dl (6.4-8.2) Albumin 3.6 gm/dl (3.4-5.0) Globulin 3.2 gm/dl (2.5-4.0) Albumin/Globulin Ratio 1.1 (0.9-2) Lipase 248 U/L (73-393) Hepatitis C Antibody Screen NEG (NEG) Urine Color YELLOW Urine Appearance CLEAR (CLEAR) Urine pH 5.0 (4.5-7.5) Urine Specific May 1.011 (1.000-1.030) Urine Protein NEG (NEG) Urine Glucose (UA) NEG (NEG) Urine Ketones NEG (NEG) Urine Occult Blood 2+ (NEG) Urine Nitrite NEG (NEG) Urine Bilirubin NEG (NEG) Urine Urobilinogen NEG (NEG) Urine Leukocyte Esterase TRACE (NEG) Urine WBC (Auto) 1-5 /hpf (0-5) Urine RBC (Auto) 0-4 /hpf (0-4) Urine Hyaline Casts (Auto) 0 /lpf (0-5) Urine Epithelial Cells (Auto) 10-20 /lpf (0-5) Urine Bacteria (Auto) NEG (NEG) Medications Administered Medications (Trade) Dose Ordered Sig/Paulo Route Start Time Stop Time Status Last Admin Dose Admin Sodium Chloride 1,000 ml @ 999 mls/hr Q1H1M ONCE IV 10/02/17 05:45 10/02/17 06:45 DC 10/02/17 05:52 999 MLS/HR Ondansetron HCl (Zofran Inj) 4 mg NOW STAT IV 10/02/17 05:36 10/02/17 05:38 DC 10/02/17 05:45 4 MG Ketorolac Tromethamine (Toradol Inj) 30 mg NOW STAT IV 10/02/17 05:36 10/02/17 05:38 DC 10/02/17 05:46 30 MG Hydromorphone HCl (Dilaudid Inj) 1 mg NOW STAT IV 10/02/17 05:36 10/02/17 05:38 DC 10/02/17 05:46 1 MG Hydromorphone HCl (Dilaudid Inj) 0.5 mg NOW STAT IV 10/02/17 06:39 10/02/17 06:40 DC 10/02/17 06:45 0.5 MG Ondansetron HCl (Zofran Inj) 4 mg NOW STAT IV 10/02/17 07:28 10/02/17 07:29 DC 10/02/17 07:32 4 MG Tamsulosin HCl (Flomax Cap) 0.4 mg TODAY@0800 PO 10/02/17 08:00 10/02/17 16:00 DC 10/02/17 08:38 0.4 MG Senna (Senokot Tab) 17.2 mg QAM PO 10/02/17 09:00 11/01/17 08:59 10/02/17 11:25 17.2 MG Hydromorphone HCl (Dilaudid Inj) 1 mg Q6H PRN IV 10/02/17 08:00 10/02/17 22:08 DC 10/02/17 21:31 1 MG Miscellaneous Information (Nursing Verbal Med Order) 1 ea ONE ONCE N/A 10/02/17 09:15 10/02/17 09:16 DC 10/02/17 09:18 1 EA Diphenhydramine HCl (Benadryl Inj) 50 mg STK-MED ONCE .ROUTE 10/02/17 09:16 10/02/17 09:17 DC 10/02/17 09:18 15 MG ED Course Physical exam and history were performed. Nursing notes, EMR, and Medication List were personally reviewed. Patient appears to have ongoing pain from a right ureteral calculi. She appears quite uncomfortable on presentation. IV access was established and labs were obtained. She was hydrated with normal saline and given pain medication as above. X-ray and ultrasound were performed. Urine was collected. The patient's blood work is as above and was reviewed. She does not have a significantly elevated white blood cell count, gross anemia, bandemia, or significant electrolyte imbalance. Urine is without obvious infection, but continues to be consistent with a stone. She does have a slight increase in her creatinine today from essentially 0.9 to 1.27. Her KUB was reviewed by myself and radiology and is as above without obvious stone finding. Her ultrasound however it appears to show a 6 mm proximal stone. Clinically this would correlate with the patient's discomfort, and is likely the stone that has been causing her symptoms the past several days. She does have a noted [place] on ultrasound as well. On reevaluation the patient had improved comfort, but continued to be uncomfortable. It took several rounds of pain medication to help the patient with her symptoms. I discussed options of care with the patient, who does not feel comfortable with discharge home as she was unable to control her pain. The case was discussed with the on[facility]call [facility] who will evaluate the patient here in the department. Please see their dictation for further patient course, plan, and disposition. The chart was completed utilizing [employer] Speech Voice Recognition Software. Grammatical errors, random word insertions, pronoun errors, and incomplete sentences are an occasional consequence of this system due to software limitations, ambient noise, and hardware issues. Any formal questions or concerns about the content, text, or information contained within the body of this dictation should be directly addressed to the provider for clarification. . Medical Decision Differential diagnosis: Etiologies such as renal colic, appendicitis, diverticulitis, mesenteric ischemia, aortic pathology, infections, inflammatory bowel disease, PUD, biliary pathology, UTI, as well as others were entertained. Impression Primary Impression: Right kidney stone Additional Impression: Hydronephrosis of right kidney Departure Information Dispostion Admitted as an inpatient Referrals Gayatri Pham M.D. (PCP) Forms HOME CARE DOCUMENTATION FORM, IMPORTANT VISIT INFORMATION Patient Instructions My [facility] Problem Qualifiers
[2017-10-03 06:28] LABS: BASO % 0.4 %; BASO ABS # 0.02 K/uL (0-0.2); EOS % 6.1 %; EOS ABS # 0.31 K/uL (0-0.5); HEMATOCRIT 33.7 % (37-47); LYMPH % 33.9 %; LYMPH ABS # 1.73 K/uL (1.2-3.4); MEAN CELL VOLUME 89.4 fL (80-100); MEAN CORPUSCULAR HEMOGLOBIN 29.2 pg (25-34); MEAN CORPUSCULAR HGB CONC 32.6 g/dl (32-36); MEAN PLATELET VOLUME 9.1 fL (7.4-10.4); MONO % 9.2 %; MONO ABS # 0.47 K/uL (0.11-0.59); NEUT % 50.4 %; NEUT ABS # 2.58 K/uL (1.4-6.5); PLATELET COUNT 187 K/uL (130-400); RED CELL DISTRIBUTION WIDTH CV 13.4 % (11.5-14.5); RED CELL DISTRIBUTION WIDTH SD 43.7 fL (36.4-46.3); WHITE BLOOD COUNT 5.11 K/uL (4.8-10.8)
[2017-10-03 06:58] LABS: ALBUMIN 2.8 gm/dl (3.4-5.0); CREATININE 0.73 mg/dl (0.60-1.20); POTASSIUM 3.8 mmol/L (3.5-5.1)
[2017-10-03 06:59] LABS: TOTAL PROTEIN 5.7 gm/dl (6.4-8.2)
[2017-10-03] MEDS: TRAMADOL HCL 50 MG TAB PO PRN ×3 (07:37→21:34)
[2017-10-03] MEDS: SENNA 8.6 MG TAB PO SCH (07:37)
[2017-10-03] MEDS ORDERED: TAMSULOSIN HCL 0.4 MG CAP PO SCH (09:00)
[2017-10-03] MEDS ORDERED: MIDAZOLAM HCL 1 MG/ML 2ML VIAL ONE (14:54)
[2017-10-03] MEDS ORDERED: FENTANYL CITRATE INJ 50 MCG/1 ML 2 ML VIAL ONE (14:54)
[2017-10-03] MEDS ORDERED: NURSING VERBAL MED ORDER ONE (15:55)
[2017-10-03] MEDS ORDERED: CEFAZOLIN SOD 2000MG/15 ML IV PUSH IV ONE (15:57)
--- NOTE | 2017-10-03 16:02 | History & Physical Bridge Note ---
H&P Re-Evaluation Bridge Note: I have examined the patient, reviewed the History & Physical and in the interval since the performance of the History & Physical I have noted the following changes of clinical significance: No changes noted Her stone has not passed so we are going to OR I explained surgery and she signed consent right uscope laser litho basket stone extraction stent ancef hospital liaison knee high scds
[2017-10-03] MEDS ORDERED: PROPOFOL IV EMULSION 10 MG/ML 20 ML VIAL IV ONE (16:24)
[2017-10-03] MEDS ORDERED: ONDANSETRON INJ 2 MG/ML 2 ML VIAL ONE (16:24)
[2017-10-03] MEDS ORDERED: DEXAMETHASONE SOD INJ 4 MG/ML VIAL ONE (16:24)
[2017-10-03] MEDS ORDERED: HYDROmorphone INJ 2 MG/ML SYR/VIAL IV PRN (16:30)
[2017-10-03] MEDS ORDERED: EpHEDrine SULFATE INJ 50 MG/ML AMP IV PRN (16:30)
[2017-10-03] MEDS ORDERED: LABETALOL HCL IV 5 MG/ML 20ML IV PRN (16:30)
[2017-10-03] MEDS ORDERED: ONDANSETRON INJ 2 MG/ML 2 ML VIAL IV PRN (16:30)
[2017-10-03] MEDS ORDERED: FENTANYL CITRATE INJ 50 MCG/1 ML 2 ML VIAL IV PRN (16:30)
[2017-10-03] MEDS ORDERED: MEPERIDINE HCL 25 MG/ML CARP IV PRN (16:30)
[2017-10-03] MEDS ORDERED: ATROPINE SULFATE 0.1 MG/ML 5ML SYR IV PRN (16:30)
--- NOTE | 2017-10-03 16:32 | [facility] Operative Report ---
Operative Report Operative Date Oct 03, 2017. Pre-Operative Diagnosis right ureteral stone Post-Operative Diagnosis same Procedure(s) Performed cysto with basket extraction of right ureteral stone Surgeon jose [employer] Officer Surgeon(s) none Estimated Blood Loss 0mL Findings round black stone visible at the right UO Fluids 300mL Specimens right ureterla stone Drains None Anesthesia Type General Complication(s) none Disposition yes Recovery Room / PACU Indications symptomatic stone right ureter with hydro. she has tried for last 3 days to pass and the pain is unbearable. She opts for surgical treatment. Description of Procedure Patient was given total iv general anesthesia and placed in lithotomy position. Her genitals were prepped and draped in sterile fashion. Time out held with team. I placed a 21 fr rigid cystoscope to bladder. The urethra is unremarkable. The UOs are normal on left and slightly bulging on the right with the dark stone visible in the right uo. I used a 2.4 fr basket introduced via a 5 fr catheter to basket the stone whole under direct vision and pull it out of the UO. I sent it for analysis. There is brisk efflux from right Uo after placement. I left bladder empty and concluded case. She transferred to recovery under my escort, in stable condition. Plan: Home today or tomorrow Pyridium for dysuria x 3 days doxazosin daily until pain free oral pain meds as needed ASA 2 clean contaminated case no fluoro ancef antibiotic center consultant I attest to the content of the Intraoperative Record and any orders documented therein. Any exceptions are noted below.
[2017-10-03] MEDS ORDERED: LIDOCAINE HCL 2% 2 ML VIAL (20MG/ML) ONE (16:38)
[2017-10-03] MEDS ORDERED: PHENAZOPYRIDINE HCL 200 MG TAB PO PRN (16:45)
--- NOTE | 2017-10-03 17:24 | Anesthesiology Progress Note ---
Anesthesia Post Op Note Date & Time Oct 03, 2017 at 17:23 Vital Signs Pain Intensity: 0 Vital Signs Past 12 Hours Date Time Temp Pulse Resp B/P (MAP) Pulse Ox O2 Delivery O2 Flow Rate FiO2 10/03/17 17:12 51 15 10/03/17 17:12 50 15 96 10/03/17 17:11 120/75 10/03/17 17:07 55 16 10/03/17 17:07 54 16 96 10/03/17 17:06 121/75 10/03/17 17:02 55 19 10/03/17 17:02 54 19 96 10/03/17 17:01 127/73 10/03/17 16:57 53 19 10/03/17 16:57 54 19 96 10/03/17 16:56 118/77 10/03/17 16:56 37.1 60 19 118/77 (89) 97 Nasal Cannula 2 10/03/17 16:55 54 18 95 10/03/17 16:55 57 18 10/03/17 16:54 57 20 98 10/03/17 16:54 56 20 10/03/17 16:51 126/84 10/03/17 16:49 66 24 10/03/17 16:49 68 24 98 10/03/17 16:46 127/78 10/03/17 16:44 68 17 10/03/17 16:44 69 17 100 10/03/17 16:43 69 15 10/03/17 16:43 71 15 100 10/03/17 16:41 126/77 10/03/17 16:38 74 21 100 10/03/17 16:38 74 21 10/03/17 16:36 127/75 10/03/17 16:34 116/78 10/03/17 16:33 36.3 77 12 116/78 (91) 100 Oxymask 10 10/03/17 16:33 78 18 100 10/03/17 16:33 78 18 10/03/17 15:45 37.0 66 20 126/83 (97) 97 Room Air 10/03/17 08:00 95 Room Air 10/03/17 07:20 36.5 63 20 126/79 (95) 95 Room Air Notes Mental Status: alert / awake / arousable, participated in evaluation Pt Amnestic to Procedure: Yes Nausea / Vomiting: adequately controlled Pain: adequately controlled Airway Patency, RR, SpO2: stable & adequate BP & HR: stable & adequate Hydration State: stable & adequate Anesthetic Complications: no major complications apparent
--- NOTE | 2017-10-03 19:23 | Progress Note ---
Progress Note Date of Service Oct 03, 2017. Progress Note Subjective: Patient s/p cysto with basket extraction of right ureteral stone. Denies acute pain or shortness of breath Physical Exam: General: no acute distress Lungs: CTABL Abdomen: soft, nontender, + bowel sounds Extremities: no edema CT Abdomen 09/30/17 "Obstructing 5 mm calculus in the proximal right ureter at the level of L4. Resultant mild right pelvocaliectasis. Dilatation of the proximal right ureter. There is also mild left pelvocaliectasis though the proximal left ureter is nondistended. Suggesting ureteropelvic junction obstruction." KUB 10/02/17 "There is gaseous prominence of both large and small bowel loops likely representing a mild ileus. There is a lumbar levoscoliosis. There are no transition zones indicate bowel obstruction. There are multiple nonspecific pelvic basin calcifications. The proximal ureteral calculus described in the recent CT scan is not visualized with certainty. IMPRESSION: Nonspecific pelvic basin calcifications. A distal ureteral calculus cannot be excluded. " Renal Ultrasound 10/02/17 "1. Obstructing 6 mm proximal right ureteral calculus with moderate right hydronephrosis. 2. Potential additional calcification right ureterovesical junction. There is Slight nonspecific fullness left renal collecting system" Plan Obstructing 6 mm proximal right ureteral calculus with moderate right hydronephrosis -s/p cysto with basket extraction of right ureteral stone on -Pyridium for dysuria x 3 days -doxazosin daily until pain free -antiemetics except comapzine (Reports tongue swelling allergy to compazine ) -Pain medications with bowel regimen DVT ppx: SCDs FULL CODE Disposition: continue to monitor post-op overnight and for pain control, possible discharge tomorrow
[2017-10-03] MEDS: POLYETHYLENE (MIRALAX) 17 GM PACK PO SCH (21:34)
[2017-10-03] MEDS: DOXAZosin MESYLATE TAB 2 MG TAB PO SCH (21:34)
[2017-10-03] MEDS ORDERED: OXYCODONE/ACETAMINOPHEN 10/325MG TAB PO PRN (23:45)
[2017-10-04 00:35] VITALS: BP 131/75; PULSE 73; TEMP 37; O2SAT 95
[2017-10-04 06:20] LABS: EOS % 0.1 %; EOS ABS # 0.01 K/uL (0-0.5); HEMATOCRIT 35.1 % (37-47); HEMOGLOBIN 11.8 g/dL (12.0-16.0); IG# 0.01 K/uL (0.00-0.02); LYMPH % 10.4 %; LYMPH ABS # 0.77 K/uL (1.2-3.4); MEAN CORPUSCULAR HEMOGLOBIN 29.6 pg (25-34); MEAN CORPUSCULAR HGB CONC 33.6 g/dl (32-36); MEAN PLATELET VOLUME 9.4 fL (7.4-10.4); MONO % 3.9 %; MONO ABS # 0.29 K/uL (0.11-0.59); NEUT % 85.5 %; PLATELET COUNT 230 K/uL (130-400); RED CELL DISTRIBUTION WIDTH CV 12.9 % (11.5-14.5); RED CELL DISTRIBUTION WIDTH SD 41.9 fL (36.4-46.3); WHITE BLOOD COUNT 7.38 K/uL (4.8-10.8)
[2017-10-04 06:51] LABS: CALCIUM 8.5 mg/dl (8.5-10.1); CREATININE 0.7 mg/dl (0.60-1.20); POTASSIUM 3.8 mmol/L (3.5-5.1)
[2017-10-04 06:54] LABS: TOTAL PROTEIN 6.3 gm/dl (6.4-8.2)
[2017-10-04] MEDS: SODIUM CHLORIDE 0.9% 1000ML 1,000 ML IV SCH (07:07)
[2017-10-04 07:35] VITALS: BP 131/76; PULSE 56; TEMP 36.8; O2SAT 96
[2017-10-04] MEDS ORDERED: PHEN-1043 PO (07:56)
[2017-10-04] MEDS ORDERED: CRD2 PO (07:58)
[2017-10-04] MEDS: SENNA 8.6 MG TAB PO SCH (08:11)
--- NOTE | 2017-10-04 08:21 | Progress Note ---
Internal Med Progress Note Date of Service: Oct 04, 2017. Provider Documentation: Subjective: Patient s/p cysto with basket extraction of right ureteral stone on 10/03/17. Patient denies acute pain or shortness of breath. Reports urinating well and no back pain and no dysuria. Physical Exam: General: no acute distress Lungs: CTABL Abdomen: soft, nontender, + bowel sounds Back: no costovertebral tenderness Extremities: no edema ASSESSMENT & PLAN: Hospital Imaging CT Abdomen 09/30/17 "Obstructing 5 mm calculus in the proximal right ureter at the level of L4. Resultant mild right pelvocaliectasis. Dilatation of the proximal right ureter. There is also mild left pelvocaliectasis though the proximal left ureter is nondistended. Suggesting ureteropelvic junction obstruction." KUB 10/02/17 "There is gaseous prominence of both large and small bowel loops likely representing a mild ileus. There is a lumbar levoscoliosis. There are no transition zones indicate bowel obstruction. There are multiple nonspecific pelvic basin calcifications. The proximal ureteral calculus described in the recent CT scan is not visualized with certainty. IMPRESSION: Nonspecific pelvic basin calcifications. A distal ureteral calculus cannot be excluded. " Renal Ultrasound 10/02/17 "1. Obstructing 6 mm proximal right ureteral calculus with moderate right hydronephrosis. 2. Potential additional calcification right ureterovesical junction. There is Slight nonspecific fullness left renal collecting system" Diagnosis Obstructing 6 mm proximal right ureteral calculus with moderate right hydronephrosis -s/p cysto with basket extraction of right ureteral stone on 10/03/17 Discharge instructions and outpatient plan For the Obstructing 6 mm proximal right ureteral calculus with moderate right hydronephrosis, s/p cysto with basket extraction of right ureteral stone on 10/[address] White Patient can take -Pyridium for dysuria x 3 days -doxazosin daily until pain free -home medication of percocet twice a day if needed for urinary or flank pain if this recurs Please follow up with primary care doctor 10/10/2017 10:35AM [facility] Gayatri Pham, DO Please follow up with urology doctor if needed (can call [phone] for scheduling any [facility] affiliated clinics) Yumi White MD Urology [facility] [address], [place] [address] Patient is asked to return to the hospital if fever, worsening back and flank pain, extreme pain with urination, grossly bleeding in the urine, vomiting Vital Signs: Date Time Temp Pulse Resp B/P (MAP) Pulse Ox O2 Delivery O2 Flow Rate FiO2 10/04/17 07:35 36.8 56 18 131/76 (94) 96 Room Air 10/04/17 00:35 37.0 73 18 131/75 (93) 95 Room Air 10/04/17 00:00 Room Air 10/03/17 19:30 36.9 73 18 124/73 (90) 95 Room Air 10/03/17 18:30 36.9 64 16 115/74 (88) 94 Room Air 10/03/17 18:00 36.8 66 18 115/71 (86) 96 Room Air 10/03/17 17:30 36.8 70 18 153/75 (101) 96 Room Air 10/03/17 17:12 51 15 10/03/17 17:12 50 15 96 10/03/17 17:11 120/75 10/03/17 17:07 55 16 10/03/17 17:07 54 16 96 10/03/17 17:06 121/75 10/03/17 17:02 55 19 10/03/17 17:02 54 19 96 10/03/17 17:01 127/73 10/03/17 16:57 53 19 10/03/17 16:57 54 19 96 10/03/17 16:56 118/77 10/03/17 16:56 37.1 60 19 118/77 (89) 97 Nasal Cannula 2 10/03/17 16:55 54 18 95 10/03/17 16:55 57 18 10/03/17 16:54 57 20 98 10/03/17 16:54 56 20 10/03/17 16:51 126/84 10/03/17 16:49 66 24 10/03/17 16:49 68 24 98 10/03/17 16:46 127/78 10/03/17 16:44 68 17 10/03/17 16:44 69 17 100 10/03/17 16:43 69 15 10/03/17 16:43 71 15 100 10/03/17 16:41 126/77 10/03/17 16:38 74 21 100 10/03/17 16:38 74 21 10/03/17 16:36 127/75 10/03/17 16:34 116/78 10/03/17 16:33 36.3 77 12 116/78 (91) 100 Oxymask 10 10/03/17 16:33 78 18 100 10/03/17 16:33 78 18 10/03/17 16:10 Room Air 10/03/17 15:45 37.0 66 20 126/83 (97) 97 Room Air Lab Results: Results Past 24 Hours Test 10/04/17 05:25 Range/Units White Blood Count 7.38 4.8-10.8 K/uL Red Blood Count 3.99 4.2-5.4 M/uL Hemoglobin 11.8 12.0-16.0 g/dL Hematocrit 35.1 37-47 % Mean Corpuscular Volume 88.0 80-100 fL Mean Corpuscular Hemoglobin 29.6 25-34 pg Mean Corpuscular Hemoglobin Concent 33.6 32-36 g/dl Platelet Count 230 130-400 K/uL Mean Platelet Volume 9.4 7.4-10.4 fL Neutrophils (%) (Auto) 85.5 % Lymphocytes (%) (Auto) 10.4 % Monocytes (%) (Auto) 3.9 % Eosinophils (%) (Auto) 0.1 % Basophils (%) (Auto) 0.0 % Neutrophils # (Auto) 6.30 1.4-6.5 K/uL Lymphocytes # (Auto) 0.77 1.2-3.4 K/uL Monocytes # (Auto) 0.29 0.11-0.59 K/uL Eosinophils # (Auto) 0.01 0-0.5 K/uL Basophils # (Auto) 0.00 0-0.2 K/uL RDW Standard Deviation 41.9 36.4-46.3 fL RDW Coefficient of Variation 12.9 11.5-14.5 % Immature Granulocyte % (Auto) 0.1 % Immature Granulocyte # (Auto) 0.01 0.00-0.02 K/uL Sodium Level 141 136-145 mmol/L Potassium Level 3.8 3.5-5.1 mmol/L Chloride Level 110 98-107 mmol/L Carbon Dioxide Level 25 21-32 mmol/L Anion Gap 6.0 3-11 mmol/L Blood Urea Nitrogen 10 7-18 mg/dl Creatinine 0.70 0.60-1.20 mg/dl Est Creatinine Clear Calc Drug Dose 89.4 ml/min Estimated GFR () 113.8 Estimated GFR (Non- 98.2 BUN/Creatinine Ratio 14.5 10-20 Random Glucose 162 70-99 mg/dl Calcium Level 8.5 8.5-10.1 mg/dl Total Bilirubin 0.3 0.2-1 mg/dl Aspartate Amino Transf (AST/SGOT) 18 15-37 U/L Alanine Aminotransferase (ALT/SGPT) 22 12-78 U/L Alkaline Phosphatase 67 45-117 U/L Total Protein 6.3 6.4-8.2 gm/dl Albumin 3.0 3.4-5.0 gm/dl Globulin 3.3 2.5-4.0 gm/dl Albumin/Globulin Ratio 0.9 0.9-2
--- NOTE | 2017-10-04 08:37 | Discharge Instructions ---
Discharge Instructions Date of Service Oct 04, 2017. Admission Reason for Admission: Hydronephrosis Of R Kidney, Kidney Stone Discharge Discharge Diagnosis / Problem: 6 mm proximal right ureteral calculus with moderate right hydronephrosis Discharge Goals Goal(s): Decrease discomfort, Improve function, Improve disease control Activity Recommendations Activity Limitations: per Instructions/Follow-up section Shower/Bathe: no limitations . Instructions / Follow-Up Instructions / Follow-Up Hospital Imaging CT Abdomen 09/30/17 "Obstructing 5 mm calculus in the proximal right ureter at the level of L4. Resultant mild right pelvocaliectasis. Dilatation of the proximal right ureter. There is also mild left pelvocaliectasis though the proximal left ureter is nondistended. Suggesting ureteropelvic junction obstruction." KUB 10/02/17 "There is gaseous prominence of both large and small bowel loops likely representing a mild ileus. There is a lumbar levoscoliosis. There are no transition zones indicate bowel obstruction. There are multiple nonspecific pelvic basin calcifications. The proximal ureteral calculus described in the recent CT scan is not visualized with certainty. IMPRESSION: Nonspecific pelvic basin calcifications. A distal ureteral calculus cannot be excluded. " Renal Ultrasound 10/02/17 "1. Obstructing 6 mm proximal right ureteral calculus with moderate right hydronephrosis. 2. Potential additional calcification right ureterovesical junction. There is Slight nonspecific fullness left renal collecting system" Diagnosis Obstructing 6 mm proximal right ureteral calculus with moderate right hydronephrosis -s/p cysto with basket extraction of right ureteral stone on 10/03/17 Discharge instructions and outpatient plan For the Obstructing 6 mm proximal right ureteral calculus with moderate right hydronephrosis, s/p cysto with basket extraction of right ureteral stone on 10/[address] White Patient can take -Pyridium for dysuria x 3 days -doxazosin daily until pain free -home medication of percocet twice a day if needed for urinary or flank pain if this recurs Please follow up with primary care doctor 10/10/2017 10:35AM [facility] [place] Gayatri De Anda, DO Please follow up with urology doctor if needed (can call [phone] for scheduling any [facility] affiliated clinics) Yumi White MD Urology [address], [place], [place] [address] Patient is asked to return to the hospital if fever, worsening back and flank pain, extreme pain with urination, grossly bleeding in the urine, vomiting Current Hospital Diet Patient's current hospital diet: Regular Diet Discharge Diet Recommended Diet: Regular Diet Procedures Procedures Performed: cysto with basket extraction of right ureteral stone Pending Studies Studies pending at discharge: no Laboratory Results 10/04/17 05:25 Red Blood Count 3.99, Mean Corpuscular Volume 88.0, Mean Corpuscular Hemoglobin 29.6, Mean Corpuscular Hemoglobin Concent 33.6, Mean Platelet Volume 9.4, Neutrophils (%) (Auto) 85.5, Lymphocytes (%) (Auto) 10.4, Monocytes (%) (Auto) 3.9, Eosinophils (%) (Auto) 0.1, Basophils (%) (Auto) 0.0, Neutrophils # (Auto) 6.30, Lymphocytes # (Auto) 0.77, Monocytes # (Auto) 0.29, Eosinophils # (Auto) 0.01, Basophils # (Auto) 0.00 10/04/17 05:25 Test 10/02/17 05:45 10/02/17 06:37 10/03/17 00:00 10/04/17 05:25 Lipase 248 U/L (73-393) Hepatitis C Antibody Screen NEG (NEG) Urine Color YELLOW Urine Appearance CLEAR (CLEAR) Urine pH 5.0 (4.5-7.5) Urine Specific [place] 1.011 (1.000-1.030) Urine Protein NEG (NEG) Urine Glucose (UA) NEG (NEG) Urine Ketones NEG (NEG) Urine Occult Blood 2+ (NEG) Urine Nitrite NEG (NEG) Urine Bilirubin NEG (NEG) Urine Urobilinogen NEG (NEG) Urine Leukocyte Esterase TRACE (NEG) Urine WBC (Auto) 1-5 /hpf (0-5) Urine RBC (Auto) 0-4 /hpf (0-4) Urine Hyaline Casts (Auto) 0 /lpf (0-5) Urine Epithelial Cells (Auto) 10-20 /lpf (0-5) Urine Bacteria (Auto) NEG (NEG) White Blood Count 7.38 K/uL (4.8-10.8) Red Blood Count 3.99 M/uL (4.2-5.4) Hemoglobin 11.8 g/dL (12.0-16.0) Hematocrit 35.1 % (37-47) Mean Corpuscular Volume 88.0 fL (80-100) Mean Corpuscular Hemoglobin 29.6 pg (25-34) Mean Corpuscular Hemoglobin Concent 33.6 g/dl (32-36) Platelet Count 230 K/uL (130-400) Mean Platelet Volume 9.4 fL (7.4-10.4) Neutrophils (%) (Auto) 85.5 % Lymphocytes (%) (Auto) 10.4 % Monocytes (%) (Auto) 3.9 % Eosinophils (%) (Auto) 0.1 % Basophils (%) (Auto) 0.0 % Neutrophils # (Auto) 6.30 K/uL (1.4-6.5) Lymphocytes # (Auto) 0.77 K/uL (1.2-3.4) Monocytes # (Auto) 0.29 K/uL (0.11-0.59) Eosinophils # (Auto) 0.01 K/uL (0-0.5) Basophils # (Auto) 0.00 K/uL (0-0.2) RDW Standard Deviation 41.9 fL (36.4-46.3) RDW Coefficient of Variation 12.9 % (11.5-14.5) Immature Granulocyte % (Auto) 0.1 % Immature Granulocyte # (Auto) 0.01 K/uL (0.00-0.02) Anion Gap 6.0 mmol/L (3-11) Est Creatinine Clear Calc Drug Dose 89.4 ml/min Estimated GFR () 113.8 Estimated GFR (Non- 98.2 BUN/Creatinine Ratio 14.5 (10-20) Calcium Level 8.5 mg/dl (8.5-10.1) Total Bilirubin 0.3 mg/dl (0.2-1) Aspartate Amino Transf (AST/SGOT) 18 U/L (15-37) Alanine Aminotransferase (ALT/SGPT) 22 U/L (12-78) Alkaline Phosphatase 67 U/L (45-117) Total Protein 6.3 gm/dl (6.4-8.2) Albumin 3.0 gm/dl (3.4-5.0) Globulin 3.3 gm/dl (2.5-4.0) Albumin/Globulin Ratio 0.9 (0.9-2) Medical Emergencies . Who to Call and When: Medical Emergencies: If at any time you feel your situation is an emergency, please call 911 immediately. . Non-Emergent Contact Non-Emergency issues call your: Primary Care Provider, Urologist . . "Provider Documentation" section prepared by Saud Harper. .
--- NOTE | 2017-10-04 08:43 | Discharge Summary ---
Discharge Summary Date of Service Oct 04, 2017. Discharge Summary Admission Date: Oct 02, 2017 at 08:02 Discharge Date: Oct 04, 2017 Discharge Disposition: Home Principal Diagnosis: 6 mm proximal right ureteral calculus with moderate right hydronephrosis Procedures: s/p cystoscopy with basket extraction of right ureteral stone on 10/03/17 Consultations: urology Medication Reconciliation New Medications: Doxazosin Mesylate (Doxazosin Mesylate) 2 Mg Tab 2 MG PO HS for 10 Days, #10 TAB Phenazopyridine HCl (Phenazopyridine HCl) 200 Mg Tab 200 MG PO TID PRN for Bladder pain for 3 Days, #9 TAB Continued Medications: Multivitamin (Multivitamin) Tab 1 TAB PO DAILY, TAB Oxycodone/Acetaminophen 10MG/325MG (Percocet 10MG/325MG) Tab 1 TAB PO BID PRN for Pain, TAB pt states usually only will take 1/day Discontinued Medications: Tamsulosin Hcl (Flomax) 0.4 Mg Cap 0.4 MG PO DAILY, CAP Admission Information HPI (per Admitting provider): This is a 52 year old F who reports of kidney stones of right kidney in the past with last bout of kidney stones around 5 yars ago which resolved without surgical intervention who was last seen in the ED on 09/30/17 for right flank pain symptoms with vomiting and found on CT abdomen to have right hydronephrosis and secondary to kidney stone (Obstructing 5 mm calculus in the proximal right ureter at the level of L4. Resultant mild right pelvocaliectasis. Dilatation of the proximal right ureter). Patient was treated conservatively in the ED with pain control and patient discharged with tamsulosin and asked to schedule with urology as outpatient. Patient reports that due to primarily the right flank pain she has been laying in bed at home for the last 2 days and did not make any clinic appointments. Patient returns to the ED today with the flank pain. Patient denies fevers at home. Physical Exam (per Admitting): General Appearance: no apparent distress Head: normocephalic, atraumatic Eyes: normal inspection, EOMI, sclerae normal ENT: normal ENT inspection, hearing grossly normal, pharynx normal Neck: supple, no JVD, trachea midline Respiratory/Chest: chest non-tender, lungs clear, normal breath sounds, no respiratory distress, no accessory muscle use Cardiovascular: regular rate, rhythm, no edema, no JVD, no murmur Abdomen/GI: normal bowel sounds, non tender, soft, no organomegaly, no pulsatile mass, + pertinent finding (right flank tenderness) Back: normal inspection, no muscle spasm, normal range of motion, + right CVA tenderness Extremities/Musculoskelatal: normal inspection, no calf tenderness, no pedal edema, non-tender Neurologic/Psych: no motor/sensory deficits, alert, normal mood/affect, oriented x 3 Skin: normal color, warm/dry, no rash Hospital Course Hospital Imaging CT Abdomen 09/30/17 "Obstructing 5 mm calculus in the proximal right ureter at the level of L4. Resultant mild right pelvocaliectasis. Dilatation of the proximal right ureter. There is also mild left pelvocaliectasis though the proximal left ureter is nondistended. Suggesting ureteropelvic junction obstruction." KUB 10/02/17 "There is gaseous prominence of both large and small bowel loops likely representing a mild ileus. There is a lumbar levoscoliosis. There are no transition zones indicate bowel obstruction. There are multiple nonspecific pelvic basin calcifications. The proximal ureteral calculus described in the recent CT scan is not visualized with certainty. IMPRESSION: Nonspecific pelvic basin calcifications. A distal ureteral calculus cannot be excluded. " Renal Ultrasound 10/02/17 "1. Obstructing 6 mm proximal right ureteral calculus with moderate right hydronephrosis. 2. Potential additional calcification right ureterovesical junction. There is Slight nonspecific fullness left renal collecting system" Diagnosis Obstructing 6 mm proximal right ureteral calculus with moderate right hydronephrosis -s/p cystoscopy with basket extraction of right ureteral stone on 10/03/17 Discharge instructions and outpatient plan For the Obstructing 6 mm proximal right ureteral calculus with moderate right hydronephrosis, s/p cysto with basket extraction of right ureteral stone on 10/[address] White Patient can take -Pyridium for dysuria x 3 days -doxazosin daily until pain free -home medication of percocet twice a day if needed for urinary or flank pain if this recurs Please follow up with primary care doctor 10/10/2017 10:35AM [facility], [place] Gayatri De Anda, DO Please follow up with urology doctor if needed (can call [phone] for scheduling any [facility] affiliated clinics) Yumi White MD Urology [facility] [address], [place] [address] Patient is asked to return to the hospital if fever, worsening back and flank pain, extreme pain with urination, grossly bleeding in the urine, vomiting Total time spent on discharge = 40 minutes This includes examination of the patient, discharge planning, medication reconciliation, and communication with other providers. Discharge Instructions see above
[2017-10-04 09:44] VITALS: BP 131/76; PULSE 56; TEMP 36.8; O2SAT 96
--- NOTE | 2017-10-04 22:15 | Progress Note ---
Subjective Date of Service: Oct 04, 2017. Subjective No acute events Tolerated surgery yesterday well. Min voiding complaints No fevers. No chills. Tolerating diet. Feels ready to go home today. Problem List Medical Problems: (1) Kidney stone Status: Acute (2) Renal colic on right side Status: Acute Review of Systems All Other Systems: Reviewed and Negative Objective Vital Signs Date Time Temp Pulse Resp B/P (MAP) Pulse Ox O2 Delivery O2 Flow Rate FiO2 10/04/17 09:44 36.8 56 18 96 Room Air 10/04/17 07:35 36.8 56 18 131/76 (94) 96 Room Air 10/04/17 00:35 37.0 73 18 131/75 (93) 95 Room Air 10/04/17 00:00 Room Air Physical Exam General Appearance: no apparent distress Respiratory/Chest: lungs clear Cardiovascular: regular rate, rhythm Abdomen: soft Laboratory Results Last 24 Hours Test 10/04/17 05:25 White Blood Count 7.38 K/uL Red Blood Count 3.99 M/uL Hemoglobin 11.8 g/dL Hematocrit 35.1 % Mean Corpuscular Volume 88.0 fL Mean Corpuscular Hemoglobin 29.6 pg Mean Corpuscular Hemoglobin Concent 33.6 g/dl Platelet Count 230 K/uL Mean Platelet Volume 9.4 fL Neutrophils (%) (Auto) 85.5 % Lymphocytes (%) (Auto) 10.4 % Monocytes (%) (Auto) 3.9 % Eosinophils (%) (Auto) 0.1 % Basophils (%) (Auto) 0.0 % Neutrophils # (Auto) 6.30 K/uL Lymphocytes # (Auto) 0.77 K/uL Monocytes # (Auto) 0.29 K/uL Eosinophils # (Auto) 0.01 K/uL Basophils # (Auto) 0.00 K/uL RDW Standard Deviation 41.9 fL RDW Coefficient of Variation 12.9 % Immature Granulocyte % (Auto) 0.1 % Immature Granulocyte # (Auto) 0.01 K/uL Sodium Level 141 mmol/L Potassium Level 3.8 mmol/L Chloride Level 110 mmol/L Carbon Dioxide Level 25 mmol/L Anion Gap 6.0 mmol/L Blood Urea Nitrogen 10 mg/dl Creatinine 0.70 mg/dl Est Creatinine Clear Calc Drug Dose 89.4 ml/min Estimated GFR () 113.8 Estimated GFR (Non- 98.2 BUN/Creatinine Ratio 14.5 Random Glucose 162 mg/dl Calcium Level 8.5 mg/dl Total Bilirubin 0.3 mg/dl Aspartate Amino Transf (AST/SGOT) 18 U/L Alanine Aminotransferase (ALT/SGPT) 22 U/L Alkaline Phosphatase 67 U/L Total Protein 6.3 gm/dl Albumin 3.0 gm/dl Globulin 3.3 gm/dl Albumin/Globulin Ratio 0.9 Assessment and Plan (1) Hydronephrosis of right kidney (2) Right kidney stone Doing well s/p stone surgery Stable condition for DC home F/U as scheduled with Dr. White
== END 2017-10-04 11:05 | disposition home or self-care (01) | DRG 669 ==
LOC: C.EDB 05:21 → C.MS2W 08:02 → CANRESERV 09:02 → ENRESERV 09:02 → C.MS2W 09:57 → UNDOADMIN 09:57
PROVIDERS: ADMIT Hospitalist; ATTEND Hospitalist
PROC: 0TC68ZZ Extirpation of Matter from Right Ureter, Via Natural or Artificial Opening Endoscopic (ICD-10-PCS; principal; 2017-10-03 15:00)
DX: N13.2 Hydronephrosis with renal and ureteral calculous obstruction (principal); Z88.6 Allergy status to analgesic agent; Z88.8 Allergy status to other drugs, medicaments and biological substances